=== PATIENT | female | born 1985 | race Caucasian/White ===

== ENCOUNTER 2020-03-17 02:53 | Outpatient (CLI) | payer OTHER, SELFPAY ==
[2020-03-18 17:02] LABS: COVID-19 RT-PCR UVMMC Result Negative (Negative)
== END 2020-03-17 03:13 ==
PROVIDERS: PCP Nurse Practitioner; Visit Provider Obstetrics & Gynecology
DX: Z11.59 Encounter for screening for other viral diseases (principal); Z01.818 Encounter for other preprocedural examination
CPT/HCPCS: U0003